=== PATIENT | male | born 1965 | race Hispanic/Latino ===

== ENCOUNTER 2019-10-10 15:22 | Emergency (ER) | payer OTHER ==
[2019-10-10] MEDS ORDERED: IBUPROFEN 200 MG TAB ONE (15:48)
[2019-10-10] MEDS ORDERED: IBUPROFEN 400 MG TABLET ONE (15:48)
== END 2019-10-10 16:43 | disposition home or self-care (01) ==
LOC: EDH 15:22
DX: S20.221A Contusion of right back wall of thorax, initial encounter (principal); W11.XXXA Fall on and from ladder, initial encounter; Y93.89 Activity, other specified; Y92.89 Other specified places as the place of occurrence of the external cause; Y99.8 Other external cause status
CPT/HCPCS: 71046